=== PATIENT | female | born 1990 | race Caucasian/White ===

== ENCOUNTER 2016-06-29 15:28 | Emergency (ER) | payer OTHER, BC | END 2016-06-29 18:48 | disposition home or self-care (01) | DX: O03.9 Complete or unspecified spontaneous abortion without complication (principal); O99.331 Smoking (tobacco) complicating pregnancy, first trimester; F17.200 Nicotine dependence, unspecified, uncomplicated; Z3A.01 Less than 8 weeks gestation of pregnancy ==

== ENCOUNTER 2016-07-01 09:36 | Outpatient (CLI) | payer OTHER, BC | END 2016-07-01 09:37 | disposition home or self-care (01) | DX: O02.1 Missed abortion (principal) ==

== ENCOUNTER 2016-07-11 08:59 | Outpatient (CLI) | payer OTHER, BC | END 2016-07-11 09:00 | disposition home or self-care (01) | DX: O02.1 Missed abortion (principal) ==

== ENCOUNTER 2016-09-05 13:36 | Outpatient (CLI) | payer OTHER, BC | END 2016-09-05 13:37 | disposition home or self-care (01) | LOC: LAB.R 13:36 | PROVIDERS: ATTEND Obstetrics & Gynecology | DX: Z11.3 Encounter for screening for infections with a predominantly sexual mode of transmission (principal) | CPT/HCPCS: 87491; 87591 ==